=== PATIENT | female | born 1990 | race Caucasian/White ===

== ENCOUNTER 2023-01-09 10:41 | Outpatient (CLI) | payer OTHER ==
--- NOTE | 2023-01-09 13:15 | Ultrasound Report ---
PROCEDURE: Retroperitoneal INDICATIONS: FLANK PAIN TECHNIQUE: Real-time scanning was performed of the retroperitoneal organs, with image documentation. COMPARISON: None. FINDINGS: Kidneys: Kidneys are normal in size. Right kidney measures 10.9 cm long; left kidney measures 9.9 c m long. Right renal cortical thickness is 0.7 cm; left renal cortical thickness is 0.9 cm.. There is moderate right hydroureteronephrosis. Echogenic focus within the proximal right ureter measuring 1.1 x 0.6 x 0.6 cm. There is a 6 mm echogenic focus within the mid left kidney. Bladder: Pre-void bladder volume is 112 mL. Post-void residual is 10 mL. Pre-void images demonstra te no intraluminal masses or stones. On pre-void images, bilateral ureteral jets are noted with colo r Doppler interrogation. (Of note, ureteral jets may not be detectable in up to 25% of cases due to insufficient differences in specific gravity between ureteral and bladder urine). Miscellaneous: No free abdominal fluid. Incidental note of a right ovarian simple cyst measuring 3. 8cm. IMPRESSION: 1.Moderate right hydroureteronephrosis which persists on postvoid imaging. There is an echogenic focu s within the proximal right ureter measuring 1.2 cm without significant shadowing, unclear etiology, stone is not excluded. Obstructing stone is not definitively visualized. Noncontrast CT can be obtain ed for further evaluation. 2.No left hydronephrosis. There is a 6 mm echogenic focus within the midpole left kidney which is non specific and may represent a stone or calcification. This is nonobstructing. 3.Incidental note of a right ovarian simple cyst measuring 3.8 cm. This appears to be within the area of pain, recommend 6-12 week follow-up pelvic ultrasound to assess stability. Reviewed by: Florentin Campbell MD on 01/09/2023 1:14 PM PDT Approved by: Florentin Campbell MD on 01/09/2023 1:14 PM PDT Station ID: [id number]
== END 2023-01-09 10:42 | disposition home or self-care (01) ==
LOC: DI 10:41
PROVIDERS: ATTEND Family Medicine
DX: N13.30 Unspecified hydronephrosis (principal)